=== PATIENT | female | born 1995 | race Caucasian/White ===

== ENCOUNTER 2023-06-15 13:25 | Emergency (ER) | payer BC, SELFPAY ==
[2023-06-15 13:32] VITALS: BP 131/81; PULSE 71; RESP 18; TEMP 36.7; O2SAT 100; BMI 26.6
--- NOTE | 2023-06-15 13:53 | ED_ITS ---
HPI - General Adult General Chief complaint: Unspecified Complaint, Adult Stated complaint: abdominal pain Time Seen by Provider: 06/15/23 13:36 Source: patient Mode of arrival: ambulatory Limitations: no limitations History of Present Illness HPI narrative: 28-year-old female coming in today requesting a test. Patient states that her period is due next week. She states that you however, the ?condom b roke a few times?. She has breast tenderness. Denies nausea or vomiting. She states that she took an at-home test and it was positive. She states that she wants a more ?formal one. Related Data Home Medications Medication Instructions Recorded Confirmed No Known Home Medications 06/15/23 06/15/23 Allergies Allergy/AdvReac Type Severity Reaction Status Date / Time No Known Drug Allergies Allergy Verified 06/15/23 13:33 Review of Systems Status of ROS: Reports: 10 or more systems reviewed and unremarkable except as noted in History and below PFSH PFSH Social History Smoking Status: Unknown if ever smoked Exam Narrative: Exam Narrative: Well-nourished well-developed patient in no acute distress. Alert and oriented. Answers questions appropriately. Mood and affect are appropriate. Thoughts are goal oriented and rational. No tangential or magical thinking noted. Patient speaks in full sentences without needing to catch her breath. HEENT: Normocephalic atraumatic. Pupils are equally round reactive to light. Extraocular muscles are intact. Conjunctivae are moist without any icterus noted. Const: Vital Signs, click to edit/add: Vital Signs - 24 hr 06/15/23 13:32 Temperature 98.0 F Pulse Rate [Right Pulse Oximeter] 71 Respiratory Rate 18 Blood Pressure [Ri ght Upper Arm] 131/81 Pulse Oximetry 100 Oxygen Delivery Me thod Room Air Course Course ED Course: Urine test is positive. Vital Signs Vital signs: Initial Vital Signs Temperature 98.0 F 06/15/23 13:32 Temperature Source Temporal Artery Scan 06/15/23 13:32 Pulse Rate 71 06/15/23 13:32 Respiratory Rate 18 06/15/23 13:32 Blood Pressure 131/81 06/15/23 13:32 Blood Pressure Mean 97 06/15/23 13:32 Blood Pressure Position Sitting 06/15/23 13:32 Pulse Oximetry 100 06/15/23 13:32 Oxygen Delivery Method Room Air 06/15/23 13:32 Vital Signs Temperature 98.0 F 06/15/23 13:32 Pulse Rate 71 06/15/23 13:32 Respiratory Rate 18 06/15/23 13:32 Blood Pressure 131/81 06/15/23 13:32 Pulse Oximetry 100 06/15/23 13:32 Oxygen Delivery Method Room Air 06/15/23 13:32 Temperature 98.0 F 06/15/23 13:32 Pulse Rate 71 06/15/23 13:32 Respiratory Rate 18 06/15/23 13:32 Blood Pressure 131/81 06/15/23 13:32 Pulse Oximetry 100 06/15/23 13:32 Oxygen Delivery Method Room Air 06/15/23 13:32 Medical Decision Making MDM Narrative Medical decision making narrative: 28-year-old female, . She will follow-up with OBGYN for further management. Lab Data Lab results reviewed: Yes I reviewed the patient's lab results Labs: Lab Results 06/15/23 Range/Units 13:39 Urine HCG, Qual POSITIVE H (Negative) Discharge Plan Discharge Clinical Impression: Patient Disposition: Home, Self-Care Condition: Stable Additional Instructions: Recommend you make an appointment with OBGYN within the next week. Phone Number will be provided to you. Call 1st friday morning. Prescriptions: No Action No Known Home Medications Follow Up/Referrals: Provider,Not a Local [Primary Care Provider] - Stand Alone Forms: Michelle [employer] Info Instructions
[2023-06-15 13:55] LABS: Ur HCG Qualitative* POSITIVE (Negative)
== END 2023-06-15 14:11 | disposition home or self-care (01) ==
LOC: ED 13:58
PROVIDERS: Emergency Provider Family Medicine
DX: Z32.01 Encounter for pregnancy test, result positive (principal)
CPT/HCPCS: 81025; 99282; 99284

== ENCOUNTER 2023-06-16 11:45 | Outpatient (CLI) | payer BC, SELFPAY | END 2023-06-16 11:46 | disposition home or self-care (01) | LOC: NFLDREF 11:46 | PROVIDERS: Visit Provider Advanced Practice Midwife | DX: Z33.2 Encounter for elective termination of pregnancy (principal) | CPT/HCPCS: 84702 ==

== ENCOUNTER 2023-06-24 07:52 | Outpatient (CLI) | payer BC, SELFPAY | END 2023-06-24 07:53 | disposition home or self-care (01) | LOC: NFLDREF 07-03 12:37 | PROVIDERS: Visit Provider Advanced Practice Midwife | DX: Z32.00 Encounter for pregnancy test, result unknown (principal) | CPT/HCPCS: 84702 ==